=== PATIENT | male | born 1960 | race Caucasian/White ===

== ENCOUNTER 2017-05-16 17:50 | Emergency (ER) | payer BC, OTHER ==
[2017-05-16] MEDS ORDERED: Morphine 4 MG/ML Syringe IM ONE (17:55)
[2017-05-16] MEDS ORDERED: Morphine 4 MG/ML Syringe ONE (18:04)
[2017-05-16] MEDS ORDERED: Morphine 4 MG/ML Syringe IVPUSH ONE (18:12)
[2017-05-16] MEDS ORDERED: LORazepam 2 MG/ML Syringe IVPUSH ONE ×2 (18:14→18:31)
[2017-05-16] MEDS ORDERED: LORazepam 2 MG/ML Syringe ONE (18:31)
[2017-05-16] MEDS ORDERED: fentaNYL 100 MCG/2 ML SDV ONE (18:34)
[2017-05-16] MEDS ORDERED: fentaNYL 100 MCG/2 ML SDV IVPUSH ONE (18:34)
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
[2017-05-16 19:31] VITALS: BP 135/98
--- NOTE | 2017-05-17 07:13 | OR ---
DATE OF OPERATION: 05/16/2017 INDICATIONS: Mr. Brown is a 57-year-old male who came in with a fracture dislocation of his ankle. Desmond Morris evaluated him, sedated him, and asked me to come in to reduce this. DESCRIPTION OF PROCEDURE: The patient was well sedated and informed consent was obtained with an anterior stabilization of the distal tibia. I was able to grab the calcaneus posteriorly and with longitudinal traction easily reduce the fracture dislocation anteriorly with excellent anatomic result. The patient had pulses before and after the dislocation, and can move all five digits without problem. Postprocedure films confirmed excellent position and was placed immediately in a posterior splint and Desmond Morris resumed his care. KARSTEN/FRANKLIN /[id number]
== END 2017-05-16 19:25 | disposition critical access hospital (66) ==
LOC: CC.ED 17:50
DX: S93.04XA Dislocation of right ankle joint, initial encounter (principal); S82.851A Displaced trimalleolar fracture of right lower leg, initial encounter for closed fracture; W01.0XXA Fall on same level from slipping, tripping and stumbling without subsequent striking against object, initial encounter; Y93.39 Activity, other involving climbing, rappelling and jumping off
CPT/HCPCS: 27818; 73600; 96372; 96374; 96375; 99284; J2060; J2270; J3010